=== PATIENT | male | born 1955 | race Caucasian/White ===

== ENCOUNTER 2017-07-05 02:36 | Emergency (ER) | payer BC ==
[~2017-07-05] VITALS: Ht 177.8 cm; Wt 99.8 kg
[2017-07-05] MEDS ORDERED: RANITIDINE 300 MG TABLET (02:55)
[2017-07-05] MEDS ORDERED: LEVOTHYROXINE 100 MCG TABLET (02:55)
[2017-07-05] MEDS ORDERED: PRAMIPEXOLE 0.25 MG TABLET (02:55)
[2017-07-05] MEDS ORDERED: METFORMIN HCL ER 500 MG TABLET (02:55)
[2017-07-05] MEDS ORDERED: IV NORMAL SALINE 1000 ML BAG IV ONE (03:00)
[2017-07-05] MEDS ORDERED: LIDOCAINE 1%-EPI 1:100,000 20 ML VIAL TP ONE (03:00)
[2017-07-05] MEDS ORDERED: MORPHINE SULFATE 2 MG/1 ML DISP.SYRIN IV ONE (03:00)
[2017-07-05] MEDS ORDERED: ONDANSETRON 4 MG/2 ML VIAL IV ONE (03:00)
[2017-07-05] MEDS ORDERED: ONDANSETRON 4 MG/2 ML VIAL ONE (03:09)
[2017-07-05] MEDS ORDERED: MORPHINE SULFATE 4 MG/1 ML DISP.SYRIN ONE (03:09)
[2017-07-05 03:12] LABS: CREATININE 1.1 mg/dL (0.6-1.3); POTASSIUM 3.6 mmol/L (3.5-5.1)
[2017-07-05] MEDS ORDERED: LIDOCAINE HCL 1% 20 ML VIAL IJ ONE (03:15)
[2017-07-05 03:25] LABS: BASOPHILS % (AUTO) 0.2 % (0.0-2.0); EOSINOPHILS # (AUTO) 0.4 K/uL (0.0-0.7); EOSINOPHILS % (AUTO) 4.7 % (0.0-7.0); HEMATOCRIT 42.4 % (40-50); HEMOGLOBIN 13.8 G/DL (14.0-18.0); LYMPHOCYTES # (AUTO) 2.9 K/UL (0.8-4.8); LYMPHOCYTES % (AUTO) 32.1 % (20.5-51.5); MEAN CORPUSCULAR HEMOGLOBIN 28.9 UUG (27.0-31.0); MEAN CORPUSCULAR HGB CONC 33 g/dL (32.0-37.0); MEAN CORPUSCULAR VOLUME 88.6 FL (82.0-92.0); MONOCYTES # (AUTO) 0.9 K/UL (0.1-1.30); MONOCYTES % (AUTO) 9.5 % (0.0-11.0); NEUTROPHILS # (AUTO) 4.8 K/UL (1.8-8.9); NEUTROPHILS % (AUTO) 53.5 % (38.5-71.5); PLATELET COUNT (AUTO) 213 K/UL (150-450); RED BLOOD CELL COUNT(AUTO) 4.79 MIL/UL (4.7-6.1)
[2017-07-05] MEDS ORDERED: NEOMY/BACITRA/POLYMYXIN B OINT UD PACKET TP ONE ×2 (04:00→04:26)
--- NOTE | 2017-07-05 05:30 | NUR ---
Patient discharged to home in stable conditon. Written and verbal after care instructions given. Patient verbalizes understanding of instructions. Ambulated from ER with stable gait. All belongings with patient. Patient will be driven home by son in a private vehicle. Peripheral IV removed prior to dischrage.
[2017-07-05 05:32] VITALS: BP 138/81
== END 2017-07-05 05:33 | disposition home or self-care (01) ==
LOC: ER 02:38
DX: R55 Syncope and collapse (principal); S01.412A Laceration without foreign body of left cheek and temporomandibular area, initial encounter; S01.01XA Laceration without foreign body of scalp, initial encounter; S01.81XA Laceration without foreign body of other part of head, initial encounter; E78.00 Pure hypercholesterolemia, unspecified; W19.XXXA Unspecified fall, initial encounter; Y93.89 Activity, other specified; Y99.8 Other external cause status; Y92.89 Other specified places as the place of occurrence of the external cause
CPT/HCPCS: 36415; 70030-TC; 70450; 70486; 85025; 85730; 93005; A4663; G0480; J2270; J2405; J3490; J7030